=== PATIENT | female | born 1955 | race Caucasian/White ===

== ENCOUNTER → 2023-12-01 13:50 | Outpatient (REF) | payer MEDICARE, OTHER, SELFPAY | LOC: WDC 13:50 | PROVIDERS: ATTENDING PHYSICIAN Internal Medicine | DX: Z12.31 Encounter for screening mammogram for malignant neoplasm of breast (principal) | CPT/HCPCS: 77063; 77067 ==

== ENCOUNTER → 2023-12-03 06:44 | Outpatient (REF) | payer MEDICARE, OTHER, SELFPAY | LOC: RAD 06:44 | PROVIDERS: ATTENDING PHYSICIAN Internal Medicine Gastroenterology; FAMILY PHYSICIAN Internal Medicine | DX: R15.9 Full incontinence of feces (principal) | CPT/HCPCS: 74270 ==

== ENCOUNTER → 2024-01-11 06:32 | Day surgery (SDC) | payer MEDICARE, OTHER, SELFPAY | LOC: GI 06:32 | PROVIDERS: ATTENDING PHYSICIAN Internal Medicine Gastroenterology | DX: D12.2 Benign neoplasm of ascending colon (principal); D12.3 Benign neoplasm of transverse colon; K63.5 Polyp of colon; D12.5 Benign neoplasm of sigmoid colon; K57.10 Diverticulosis of small intestine without perforation or abscess without bleeding; K57.30 Diverticulosis of large intestine without perforation or abscess without bleeding; K64.0 First degree hemorrhoids; R19.4 Change in bowel habit; K22.89 Other specified disease of esophagus; K44.9 Diaphragmatic hernia without obstruction or gangrene; K31.89 Other diseases of stomach and duodenum; K31.7 Polyp of stomach and duodenum; Z80.0 Family history of malignant neoplasm of digestive organs | CPT/HCPCS: 45385; 45380; 43239; 88305; 88342 ==

== ENCOUNTER 2024-03-25 08:59 | Outpatient (RCR) | payer MEDICARE, OTHER, SELFPAY | END 2024-03-25 23:59 | disposition home or self-care (01) | LOC: RPT 08:59 | PROVIDERS: ATTENDING PHYSICIAN Internal Medicine Gastroenterology; FAMILY PHYSICIAN Internal Medicine | DX: R19.4 Change in bowel habit (principal); Z73.6 Limitation of activities due to disability | CPT/HCPCS: 97110; 97112; 97161; 97530 ==

== ENCOUNTER → 2024-04-01 14:42 | Outpatient (REF) | payer MEDICARE, OTHER, SELFPAY | LOC: PAVMRI 14:42 | PROVIDERS: ATTENDING PHYSICIAN Orthopaedic Surgery; FAMILY PHYSICIAN Internal Medicine | DX: M25.561 Pain in right knee (principal); M25.562 Pain in left knee | CPT/HCPCS: 73721 ==

== ENCOUNTER → 2024-04-18 07:11 | Outpatient (REF) | payer MEDICARE, OTHER, SELFPAY ==
[2024-04-18 08:03] LABS: % Basophils 1.6 % (0-2); % Eosinophils 3.5 % (0-6); % Immature Granulocytes 0.2 % (0-0.5); % Lymphocytes 38.5 % (20.5-51.1); % Monocytes 7.2 % (1.7-9.3); Absolute Basophils 0.1 10^3/uL (0-0.2); Absolute Eosinophils 0.2 10^3/uL (0-0.7); Absolute Lymphocytes 1.9 10^3/uL (1.2-3.4); Absolute Monocytes 0.4 10^3/uL (0.1-0.6); Absolute Neutrophils 2.4 10^3/uL (1.4-6.5); Hematocrit 42.7 % (37.0-47.0); Hemoglobin 14.2 g/dL (12.0-16.0); Mean Corp Hgb Conc. 33.3 g/dL (33.0-37.0); Mean Corpuscular Hgb 29.3 pg (27.0-31.0); Mean Corpuscular Volume 88.2 fL (81.0-99.0); Mean Platelet Volume 9.7 fL (7.4-10.4); Nucleated Red Blood Cells % 0 %; Platelet Count 322 10^3/uL (130-400); Red Blood Cell Count 4.84 10^6/uL (4.20-5.40); Red Cell Dist. Width 13.1 % (11.5-14.5); White Blood Cell Count 4.9 10^3/uL (4.8-10.8)
[2024-04-18 08:26] LABS: ALT (SGPT) 19 U/L (0-35); AST (SGOT) 25 U/L (14-36); Albumin 4.2 g/dl (3.5-5.0); Alkaline Phosphatase 85 U/L (38-126); Blood Urea Nitrogen 15 mg/dl (7-17); Calcium 9.8 mg/dl (8.4-10.2); Carbon Dioxide 29 mmol/L (22-30); Chloride 104 mmol/L (98-107); Glucose 91 mg/dl (70-99); HDL Cholesterol 87 mg/dl; LDL Cholesterol, Calculated 134 mg/dl; Potassium 4.6 mmol/L (3.5-5.1); Sodium 139 mmol/L (135-145); Total Bilirubin 0.5 mg/dl (0.2-1.3); Total Cholesterol 234 mg/dl (50-199); Total Protein 6.6 g/dl (6.3-8.2); Triglyceride 69 mg/dl (10-149); Very Low Density Lipoprotein 13 mg/dl (0-30); eGFR > 60.00
[2024-04-18 08:50] LABS: TSH 1.54 uIU/ml (0.47-4.68)
== END ==
LOC: REG 07:11
PROVIDERS: ATTENDING PHYSICIAN Internal Medicine
DX: E78.5 Hyperlipidemia, unspecified (principal); R74.8 Abnormal levels of other serum enzymes; E21.3 Hyperparathyroidism, unspecified; Z00.00 Encounter for general adult medical examination without abnormal findings
CPT/HCPCS: 36415; 80053; 80061; 84443; 85025

== ENCOUNTER 2024-04-25 09:12 | Outpatient (RCR) | payer MEDICARE, OTHER, SELFPAY | END 2024-04-25 23:59 | disposition home or self-care (01) | LOC: RPT 09:12 | PROVIDERS: ATTENDING PHYSICIAN Internal Medicine Gastroenterology; FAMILY PHYSICIAN Internal Medicine | DX: R19.4 Change in bowel habit (principal); M17.10 Unilateral primary osteoarthritis, unspecified knee; S83.231D Complex tear of medial meniscus, current injury, right knee, subsequent encounter; Z73.6 Limitation of activities due to disability; S83.232D Complex tear of medial meniscus, current injury, left knee, subsequent encounter | CPT/HCPCS: 97110; 97112; 97164 ==

== ENCOUNTER 2024-05-25 09:57 | Outpatient (RCR) | payer MEDICARE, OTHER, SELFPAY | END 2024-05-25 23:59 | disposition home or self-care (01) | LOC: RPT 09:57 | PROVIDERS: ATTENDING PHYSICIAN Internal Medicine Gastroenterology; FAMILY PHYSICIAN Internal Medicine | DX: R19.4 Change in bowel habit (principal); Z73.6 Limitation of activities due to disability | CPT/HCPCS: 97110; 97112 ==

== ENCOUNTER → 2024-06-14 13:04 | Outpatient (REF) | payer MEDICARE, OTHER, SELFPAY | LOC: RAD 13:04 | PROVIDERS: ATTENDING PHYSICIAN Internal Medicine | DX: M81.0 Age-related osteoporosis without current pathological fracture (principal) | CPT/HCPCS: 77080 ==

== ENCOUNTER 2024-06-15 06:43 | Outpatient (RCR) | payer MEDICARE, OTHER, SELFPAY | END 2024-06-15 23:59 | disposition home or self-care (01) | LOC: RPT 06:43 | PROVIDERS: ATTENDING PHYSICIAN Internal Medicine Gastroenterology; FAMILY PHYSICIAN Internal Medicine | DX: R19.4 Change in bowel habit (principal); M17.10 Unilateral primary osteoarthritis, unspecified knee; S83.231D Complex tear of medial meniscus, current injury, right knee, subsequent encounter; S83.232D Complex tear of medial meniscus, current injury, left knee, subsequent encounter; Z73.6 Limitation of activities due to disability | CPT/HCPCS: 97110; 97112 ==

== ENCOUNTER → 2024-08-02 06:21 | Outpatient (REF) | payer MEDICARE, OTHER, SELFPAY ==
[2024-08-02 08:50] LABS: % Basophils 1.4 % (0-2); % Eosinophils 3.2 % (0-6); % Lymphocytes 37.3 % (20.5-51.1); % Monocytes 7.8 % (1.7-9.3); % Neutrophils 50.3 % (42.2-75.2); Absolute Basophils 0.1 10^3/uL (0-0.2); Absolute Eosinophils 0.2 10^3/uL (0-0.7); Absolute Lymphocytes 1.9 10^3/uL (1.2-3.4); Absolute Monocytes 0.4 10^3/uL (0.1-0.6); Absolute Neutrophils 2.5 10^3/uL (1.4-6.5); Hematocrit 39.9 % (37.0-47.0); Hemoglobin 13.3 g/dL (12.0-16.0); Mean Corp Hgb Conc. 33.3 g/dL (33.0-37.0); Mean Corpuscular Hgb 28.9 pg (27.0-31.0); Mean Corpuscular Volume 86.7 fL (81.0-99.0); Mean Platelet Volume 9.8 fL (7.4-10.4); Nucleated Red Blood Cells % 0 %; Platelet Count 326 10^3/uL (130-400); Red Cell Dist. Width 13.5 % (11.5-14.5)
[2024-08-02 09:23] LABS: Blood Urea Nitrogen 12 mg/dl (7-17); Calcium 9.4 mg/dl (8.4-10.2); Carbon Dioxide 26 mmol/L (22-30); Chloride 105 mmol/L (98-107); Glucose 77 mg/dl (70-99); Potassium 4.5 mmol/L (3.5-5.1); Sodium 143 mmol/L (135-145); eGFR > 60.00
== END ==
LOC: SDSPAT 06:21
PROVIDERS: ATTENDING PHYSICIAN Orthopaedic Surgery; FAMILY PHYSICIAN Internal Medicine
DX: Z01.818 Encounter for other preprocedural examination (principal)
CPT/HCPCS: 80048; 85025; 93005

== ENCOUNTER 2024-08-11 06:09 | Day surgery (SDC) | payer MEDICARE, OTHER, SELFPAY ==
[2024-08-02 08:39] VITALS: BMI 20.5
[2024-08-11] VITALS (7 sets, daily range): BP systolic 108–124; BP diastolic 63–74; BMI 20.5
[2024-08-11] MEDS: TYLENOL 1000 MG PO (06:18)
[2024-08-11] MEDS: CELEBREX 200 MG PO (06:18)
== END 2024-08-11 09:10 | disposition home or self-care (01) ==
LOC: SDS 06:09
PROVIDERS: ATTENDING PHYSICIAN Orthopaedic Surgery
DX: S83.242A Other tear of medial meniscus, current injury, left knee, initial encounter (principal); S83.282A Other tear of lateral meniscus, current injury, left knee, initial encounter; X58.XXXA Exposure to other specified factors, initial encounter
CPT/HCPCS: 29880

== ENCOUNTER 2024-08-19 10:05 | Outpatient (RCR) | payer MEDICARE, OTHER, SELFPAY | END 2024-08-19 23:59 | disposition home or self-care (01) | LOC: RPT 10:05 | PROVIDERS: ATTENDING PHYSICIAN Orthopaedic Surgery; FAMILY PHYSICIAN Internal Medicine | DX: M23.332 Other meniscus derangements, other medial meniscus, left knee (principal); M62.81 Muscle weakness (generalized); Z73.6 Limitation of activities due to disability | CPT/HCPCS: 97110; 97140; 97161 ==

== ENCOUNTER 2024-09-23 08:48 | Outpatient (RCR) | payer MEDICARE, OTHER, SELFPAY | END 2024-09-23 10:04 | disposition home or self-care (01) | LOC: RPT 08:48 | PROVIDERS: ATTENDING PHYSICIAN Orthopaedic Surgery; FAMILY PHYSICIAN Internal Medicine | DX: M23.332 Other meniscus derangements, other medial meniscus, left knee (principal); M62.81 Muscle weakness (generalized); Z73.6 Limitation of activities due to disability | CPT/HCPCS: 97110; 97112; 97140 ==

== ENCOUNTER → 2024-12-14 08:07 | Outpatient (REF) | payer MEDICARE, OTHER, SELFPAY | LOC: WDC 08:07 | PROVIDERS: ATTENDING PHYSICIAN Hospitalist | DX: Z12.31 Encounter for screening mammogram for malignant neoplasm of breast (principal) | CPT/HCPCS: 77063; 77067 ==

== ENCOUNTER → 2025-04-26 07:19 | Outpatient (REF) | payer MEDICARE, OTHER, SELFPAY ==
[2025-04-26 08:16] LABS: Hematocrit 40.3 % (37.0-47.0); Hemoglobin 13.2 g/dL (12.0-16.0); Mean Corp Hgb Conc. 32.8 g/dL (33.0-37.0); Mean Corpuscular Volume 87.6 fL (81.0-99.0); Nucleated Red Blood Cells % 0 %; Platelet Count 296 10^3/uL (130-400); Red Cell Dist. Width 13.2 % (11.5-14.5)
[2025-04-26 08:29] LABS: ALT (SGPT) 21 U/L (0-35); AST (SGOT) 25 U/L (14-36); Albumin 4.3 g/dl (3.5-5.0); Alkaline Phosphatase 78 U/L (38-126); Blood Urea Nitrogen 12 mg/dl (7-17); Calcium 9.5 mg/dl (8.4-10.2); Carbon Dioxide 27 mmol/L (22-30); Chloride 109 mmol/L (98-107); Glucose 88 mg/dl (70-99); HDL Cholesterol 90 mg/dl; LDL Cholesterol, Calculated 148 mg/dl; Potassium 4.3 mmol/L (3.5-5.1); Sodium 141 mmol/L (135-145); Total Protein 6.4 g/dl (6.3-8.2); Very Low Density Lipoprotein 13 mg/dl (0-30); eGFR > 60.00
== END ==
LOC: REG 07:19
PROVIDERS: ATTENDING PHYSICIAN Internal Medicine
DX: E78.5 Hyperlipidemia, unspecified (principal); R53.83 Other fatigue
CPT/HCPCS: 36415; 80053; 80061; 84443; 85025